=== PATIENT | female | born 1980 | race Caucasian/White ===

== ENCOUNTER 2023-12-11 11:02 | Outpatient (CLI) | payer MEDICAID | END 2023-12-11 11:03 | disposition home or self-care (01) | LOC: BICMAMMO 11:02 | PROVIDERS: ATTEND Nurse Practitioner Women's Health | DX: Z12.31 Encounter for screening mammogram for malignant neoplasm of breast (principal); Z98.82 Breast implant status | CPT/HCPCS: 77067 ==